=== PATIENT | male | born 1960 | race Caucasian/White ===

== ENCOUNTER 2016-12-04 10:29 | Emergency (ER) | payer MEDICARE, OTHER ==
[2016-12-04] MEDS ORDERED: SODIUM CHLORIDE 0.9% 1,000 ML IV STA (10:55)
[2016-12-04] MEDS ORDERED: RX INFO: IV CONTRAST WAS GIVEN 1 EACH MISC MISCELLANE PRN (10:55)
[2016-12-04] MEDS ORDERED: DIAZEPAM 5 MG/ML 2 ML SYRINGE IVP STA (10:56)
--- NOTE | 2016-12-04 11:20 | ED ---
Abdominal Pain HPI - General Chief Complaint: Abdominal Pain Stated Complaint: abd pain Time Seen by Provider: 12/04/16 10:45 Source: patient, RN notes reviewed Mode of arrival: wheelchair Limitations: no limitations - History of Present Illness Initial Comments: 48-year-old male presents emergency Department chief complaint abdominal pain. Patient states he's having a tightening sensation of all his muscles in his abdomen. Patient states he woke up with this. Patient states she's had some nausea and vomiting. Patient states his concern as he has a right inguinal hernia. Patient states the pain is now localized to that region. Patient denies any dysuria hematuria. Patient denies fever, chills. Denies any sick contacts. Patient states she currently is on Harvoni treatment for hep C. Patient states he sees Dr. Nicole. Patient denies any alcohol use. Denies any illicit drug use. Patient denies any other complaints. - Related Data Home Medications Medication Instructions Recorded Confirmed Ledipasvir/Sofosbuvir [Harvoni 1 tab PO DAILY 12/04/16 12/04/16 90-400 mg Tablet] Previous Rx's Medication Instructions Recorded Diazepam [Valium] 5 mg PO BID PRN #7 tab 12/04/16 Allergies Allergy/AdvReac Type Severity Reaction Status Date / Time No Known Allergies Allergy Verified 12/04/16 12:44 Review of Systems ROS Statement: Those systems with pertinent positive or pertinent negative responses have been documented in the HPI. ROS Other: All systems not noted in ROS Statement are negative. Past Medical History Additional Past Medical History / Comment(s): hepatits C, chronic pain and nerve problems in legs History of Any Multi-Drug Resistant Organisms: None Reported Past Psychological History: No Psychological Hx Reported Smoking Status: Current every day smoker Past Alcohol Use History: None Reported Past Drug Use History: None Reported General Exam Limitations: no limitations General appearance: alert, in no apparent distress Head exam: Present: atraumatic, normocephalic, normal inspection Respiratory exam: Present: normal lung sounds bilaterally. Absent: respiratory distress, wheezes, rales, rhonchi, stridor Cardiovascular Exam: Present: regular rate, normal rhythm, normal heart sounds. Absent: systolic murmur, diastolic murmur, rubs, gallop, clicks GI/Abdominal exam: Present: soft, tenderness (Bddi-sb-gyevodwb diffuse, moderate right lower quadrant tenderness), normal bowel sounds. Absent: distended, guarding, rebound, rigid Back exam: Absent: CVA tenderness (R), CVA tenderness (L) Skin exam: Present: warm, dry, intact, normal color. Absent: rash Course Vital Signs 12/04/16 10:40 Temperature 97.8 F Pulse Rate 68 Respiratory 20 Rate Blood Pressure 129/73 O2 Sat by Pulse 99 Oximetry Medical Decision Making - Medical Decision Making 56-year-old male present emergency Department chief complaint abdominal spasms. There is no acute intra-abdominal processes at this time. Patient will hernia is noted though it is not incarcerated strangulated. Patient states she is feeling much improved at this time. Patient is afebrile and has no acute infectious process at this time. Patient will be discharged. Medication reaction is a possibility at this time secondary to recent started Harvoni - Lab Data Result diagrams: 12/04/16 11:30 12/04/16 11:30 Lab Results 12/04/16 12/04/16 12/04/16 Range/Units 11:30 11:30 11:30 WBC 5.8 (3.8-10.6) k/uL RBC 6.38 H (4.30-5.90) m/uL Hgb 19.6 H (13.0-17.5) gm/dL Hct 58.7 H (39.0-53.0) % MCV 92.0 (80.0-100.0) fL MCH 30.8 (25.0-35.0) pg MCHC 33.5 (31.0-37.0) g/dL RDW 12.9 (11.5-15.5) % Plt Count 213 (150-450) k/uL Neutrophils % 66 % Lymphocytes % 20 % Monocytes % 8 % Eosinophils % 2 % Basophils % 1 % Neutrophils # 3.9 (1.3-7.7) k/uL Lymphocytes # 1.2 (1.0-4.8) k/uL Monocytes # 0.5 (0-1.0) k/uL Eosinophils # 0.1 (0-0.7) k/uL Basophils # 0.0 (0-0.2) k/uL Sodium 141 (137-145) mmol/L Potassium 4.6 (3.5-5.1) mmol/L Chloride 104 (98-107) mmol/L Carbon Dioxide 23 (22-30) mmol/L Anion Gap 14 mmol/L BUN 12 (9-20) mg/dL Creatinine 0.60 L (0.66-1.25) mg/dL Est GFR (MDRD) Af Amer >60 (>60 ml/min/1.73 sqM) Est GFR (MDRD) Non-Af >60 (>60 ml/min/1.73 sqM) Glucose 94 (74-99) mg/dL Plasma Lactic Acid Catr[place]ito (0.7-2.0) mmol/L Calcium 9.9 (8.4-10.2) mg/dL Total Bilirubin 1.0 (0.2-1.3) mg/dL AST 31 (17-59) U/L ALT 29 (21-72) U/L Alkaline Phosphatase 71 (38-126) U/L Total Protein 8.8 H (6.3-8.2) g/dL Albumin 4.6 (3.5-5.0) g/dL Amylase 47 (30-110) U/L Lipase 117 (23-300) U/L Urine Color Yellow Urine Appearance Clear (Clear) Urine pH 6.5 (5.0-8.0) Ur Specific [place] 1.016 (1.001-1.035) Urine Protein Trace H (Negative) Urine Glucose (UA) Negative (Negative) Urine Ketones Negative (Negative) Urine Blood Negative (Negative) Urine Nitrate Negative (Negative) Urine Bilirubin Negative (Negative) Urine Urobilinogen 2.0 (<2.0) mg/dL Ur Leukocyte Esterase Negative (Negative) 12/04/16 Range/Units 11:30 WBC (3.8-10.6) k/uL RBC (4.30-5.90) m/uL Hgb (13.0-17.5) gm/dL Hct (39.0-53.0) % MCV (80.0-100.0) fL MCH (25.0-35.0) pg MCHC (31.0-37.0) g/dL RDW (11.5-15.5) % Plt Count (150-450) k/uL Neutrophils % % Lymphocytes % % Monocytes % % Eosinophils % % Basophils % % Neutrophils # (1.3-7.7) k/uL Lymphocytes # (1.0-4.8) k/uL Monocytes # (0-1.0) k/uL Eosinophils # (0-0.7) k/uL Basophils # (0-0.2) k/uL Sodium (137-145) mmol/L Potassium (3.5-5.1) mmol/L Chloride (98-107) mmol/L Carbon Dioxide (22-30) mmol/L Anion Gap mmol/L BUN (9-20) mg/dL Creatinine (0.66-1.25) mg/dL Est GFR (MDRD) Af Amer (>60 ml/min/1.73 sqM) Est GFR (MDRD) Non-Af (>60 ml/min/1.73 sqM) Glucose (74-99) mg/dL Plasma Lactic Acid Catr[place]ito 2.2 H* (0.7-2.0) mmol/L Calcium (8.4-10.2) mg/dL Total Bilirubin (0.2-1.3) mg/dL AST (17-59) U/L ALT (21-72) U/L Alkaline Phosphatase (38-126) U/L Total Protein (6.3-8.2) g/dL Albumin (3.5-5.0) g/dL Amylase (30-110) U/L Lipase (23-300) U/L Urine Color Urine Appearance (Clear) Urine pH (5.0-8.0) Ur Specific [place] (1.001-1.035) Urine Protein (Negative) Urine Glucose (UA) (Negative) Urine Ketones (Negative) Urine Blood (Negative) Urine Nitrate (Negative) Urine Bilirubin (Negative) Urine Urobilinogen (<2.0) mg/dL Ur Leukocyte Esterase (Negative) Disposition Clinical Impression: Abdominal pain Disposition: HOME SELF-CARE Condition: Stable Instructions: Abdominal Pain (ED) Additional Instructions: Please return to the Emergency Department if symptoms worsen or any other concerns. Prescriptions: Diazepam [Valium] 5 mg PO BID PRN #7 tab PRN Reason: Spasms Time of Disposition: 12:59
[2016-12-04 11:42] LABS: Basophils % (A) 1 %; CH 31.6; CHCM 34.5; Eosinophils # (A) 0.1 k/uL (0-0.7); Eosinophils % (A) 2 %; HCT 58.7 % (39.0-53.0); HDW 2.62; HGB 19.6 gm/dL (13.0-17.5); Luc # (Auto) 0.17; Luc % (Auto) 3; Lymphocytes # (A) 1.2 k/uL (1.0-4.8); Lymphocytes % (A) 20 %; MCH 30.8 pg (25.0-35.0); MCHC 33.5 g/dL (31.0-37.0); Mean Platelet Volume 6.8; Monocytes # (A) 0.5 k/uL (0-1.0); Monocytes % (A) 8 %; Neutrophils # (A) 3.9 k/uL (1.3-7.7); Neutrophils % (A) 66 %; RBC 6.38 m/uL (4.30-5.90); RDW 12.9 % (11.5-15.5); WBC 5.8 k/uL (3.8-10.6); WBC (Perox) 6.34
[2016-12-04 11:45] LABS: Appearance,Urine Clear (Clear); Bilirubin,Urine Negative (Negative); Glucose,Urine (UA) Negative (Negative); Ketones,Urine Negative (Negative); Leukocyte Esterase,Urine Negative (Negative); Nitrite,Urine Negative (Negative); PH, Urine 6.5 (5.0-8.0); Protein,Urine Trace (Negative); Specific Gravity,Urine 1.016 (1.001-1.035); UA Billing (MACRO vs. MICRO) CHEM
[2016-12-04 11:58] LABS: ALT 29 U/L (21-72); AST 31 U/L (17-59); Alkaline Phosphatase 71 U/L (38-126); Amylase 47 U/L (30-110); Anion Gap 14 mmol/L; Blood Urea Nitrogen 12 mg/dL (9-20); Calcium 9.9 mg/dL (8.4-10.2); Carbon Dioxide 23 mmol/L (22-30); Chloride 104 mmol/L (98-107); Glucose 94 mg/dL (74-99); Non-African American GFR(MDRD) >60 (>60 ml/min/1.73 sqM); Sodium 141 mmol/L (137-145); Total Protein 8.8 g/dL (6.3-8.2)
[2016-12-04 12:02] LABS: Potassium 4.6 mmol/L (3.5-5.1)
--- NOTE | 2016-12-04 12:36 | CT ---
EXAMINATION TYPE: CT abdomen pelvis w con DATE OF EXAM: 12/04/2016 12:12 PM COMPARISON: NONE HISTORY: 56-year-old male with abdominal pain, cramping, pelvic pain TECHNIQUE: Contiguous axial scanning of the abdomen and pelvis following administration of 100 ml Omn ipaque 300 IV contrast. Delayed images through the kidneys and coronal/sagittal reconstructions perf ormed. CT DLP: 518.5 mGycm Automated exposure control for dose reduction was used. FINDINGS: The heart is normal size without pericardial effusion. Prominent dependent atelectasis steven g the lower lungs. There is respiratory motion limiting the overall evaluation of the upper to mid ab domen. No focal liver lesion seen. Portal venous system appears patent. No biliary ductal dilatation. Gallbladder, adrenal glands, kidneys, spleen, and pancreas appear within normal limits. Scattered prominent retroperitoneal lymph nodes measuring up to 6 mm. Moderate apical scarring calcifications within the abdominal aorta and iliac arteries. There is a nodular area of calcification measuring 1.7 cm above the pancreatic tail that could repres ent inspissated contrast within a small bowel diverticulum or a chronically calcified lymph node. No dilated small bowel, free fluid, or free air. No pericolonic inflammatory change. Bladder is urine distended. Central prostatic calcifications with mild prominence to the prostate gla nd at 4.2 cm. There is an indirect right inguinal hernia containing small bowel loop. The small bowel loops extends beyond the superficial inguinal ring and possibly into the upper scrotum. There is no proximal bowel dilatation noted. Bones: Degenerative changes at the hips and throughout the spine. No osseous destructive process. Gra de 1 retrolistheses at L1-L2 and L2-L3 on degenerative basis. IMPRESSION: 1. SMALL BOWEL CONTAINING RIGHT INDIRECT INGUINAL HERNIA. THE SMALL BOWEL LOOP EXTENDS BEYOND THE SUP ERFICIAL INGUINAL RING LIKELY INTO THE UPPER SCROTUM. NO OBSTRUCTIVE OR INFLAMMATORY CHANGES SEEN. 2. SOME SCATTERED PROMINENT RETROPERITONEAL LYMPH NODES MEASURING UP TO 6 MM ARE PROBABLY REACTIVE/PO ST INFLAMMATORY. RECOMMEND 3 MONTH FOLLOW-UP EXAM TO ENSURE STABILITY/RESOLUTION.
[2016-12-04 13:10] VITALS: BP 142/87; PULSE 60; RESP 16; TEMP 97.6
== END 2016-12-04 13:15 | disposition home or self-care (01) ==
LOC: EC 10:29
DX: R10.31 Right lower quadrant pain (principal); R25.2 Cramp and spasm; K40.90 Unilateral inguinal hernia, without obstruction or gangrene, not specified as recurrent; B19.20 Unspecified viral hepatitis C without hepatic coma; F17.200 Nicotine dependence, unspecified, uncomplicated; Z79.899 Other long term (current) drug therapy
CPT/HCPCS: 36415; 80053; 82150; 83605; 83690; 85025; 81003; 74177; 99284; 96374; 96361; J3360; Q9967

== ENCOUNTER → 2016-12-15 | Outpatient (CLI) | payer MEDICARE, OTHER ==
[2016-12-17 15:03] LABS: Hepatits C Virus RNA, Quant <12 IU/mL (<12); LOG HCV IU/mL <1.08 (<1.08)
== END | disposition home or self-care (01) ==
LOC: LABWHC1 14:42
DX: B18.2 Chronic viral hepatitis C (principal)
CPT/HCPCS: 36415; 87522

== ENCOUNTER 2017-01-11 08:54 | Day surgery (SDC) | payer MEDICARE, OTHER ==
[2017-01-06 14:41] VITALS: BMI 25.8
[~2017-01-11 08:54] MED LIST: DEXAMETHASONE SOD PHOSPHATE 10 MG/ML 1 ML VIAL IV ONE; HEPARIN SODIUM,PORCINE 5,000 UNIT/ML 1 ML VIAL SQ ONE; LIDOCAINE 1% 20 ML VIAL (10MG/ML) FOR IV START INTRADERMA PRN; ONDANSETRON 4 MG/2 ML VIAL IVP ONE; SCOPOLAMINE 1.5MG/72HR PATCH TRANSDERM ONE; ceFAZolin 2 GM in SODIUM CHLORIDE 0.9% 100 ML IVPB ONE
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
[2017-01-11] MEDS: LACTATED RINGERS 1,000 ML IV SCH (09:23)
[2017-01-11] MEDS ORDERED: LIDOCAINE 1% 20 ML VIAL (10MG/ML) FOR IV START INTRADERMA ONE ×2 (09:23→09:24)
[2017-01-11] MEDS ORDERED: HYDROmorphone (PF) 1 MG/ML ONE (09:36)
[2017-01-11] MEDS ORDERED: SUCCINYLCHOLINE CHLORIDE 100 MG/5 ML SYR IV ONE (09:36)
[2017-01-11] MEDS ORDERED: NEOSTIGMINE 1 MG/ML 10 ML VIAL ONE (09:36)
[2017-01-11] MEDS ORDERED: KETOROLAC 30 MG/ML 1 ML VIAL ONE (09:36)
[2017-01-11] MEDS ORDERED: fentaNYL (PF) 50 MCG/ML 2 ML AMP ONE (09:36)
[2017-01-11] MEDS ORDERED: MIDAZOLAM 2 MG/2 ML VIAL ONE (09:36)
[2017-01-11] MEDS ORDERED: GLYCOPYRROLATE 0.2 MG/ML 2 ML VIAL ONE (09:36)
[2017-01-11] MEDS ORDERED: ROCURONIUM BROMIDE 10 MG/ML 10 ML VIAL IV ONE (09:36)
[2017-01-11] MEDS ORDERED: PROPOFOL 10 MG/ML 20 ML VIAL IV ONE (09:36)
[2017-01-11] MEDS ORDERED: LIDOCAINE 1% INJ 10MG/ML (20 ML MDV) ONE (09:36)
[2017-01-11] MEDS ORDERED: BUPIVACAIN-EPI 0.25%-1:200,000 30 ML VIAL SQ ONE ×2 (09:54→09:55)
--- NOTE | 2017-01-11 10:37 | P.OP ---
Date of Procedure: 01/11/17 Preoperative Diagnosis: Incarcerated right inguinal hernia Postoperative Diagnosis: Incarcerated right inguinal hernia Procedure(s) Performed: Laparoscopic robotic-assisted repair of right inguinal hernia Anesthesia: MARLON Surgeon: Rupesh Hinojosa Estimated Blood Loss (ml): 5 Pathology: none sent Condition: stable Disposition: PACU Description of Procedure: The patient was placed on the operating table in the supine position. The patient received general anesthesia. The patient's abdomen was prepped and draped in usual sterile fashion. The skin was anesthetized 1% local Xylocaine at the incision sites. Using an 11 blade a skin incision was made at the umbilicus. The fascia was grasped with a Orange and then the peritoneal cavity was entered with the Veress needle. Position of the Veress needle was confirmed with a positive drop test. After adequate insufflation a 5 mm trocar was placed into the peritoneal cavity. The Laparoscope was placed the peritoneal cavity. And a robotic 8 mm trocar was placed in the right lateral position and then another 8 mm robotic trochars placed in the left lateral position. The original 5 mm trocar was exchanged for a 12 mm trocar. The patient was placed in reverse Trendelenburg and then the patient was docked to the robot. Next the peritoneum over top of the hernia was incised and then using blunt and sharp dissection and electrocautery the hernia sac was dissected free from the floor of the inguinal canal. The hernia sac was completely reduced into the peritoneal cavity. And then using the Pro typecasting machine operator mesh the hernia was repaired. The peritoneum was then sutured with 20V lock suture. The patient was then undocked the robot. The needle was withdrawn from the peritoneal cavity. The umbilical trocar site was closed with 0 Ethibond suture. The skin was closed interrupted 3-0 Monocryl suture. Dermabond dressing was applied. Patient was sent to recovery in stable condition.
[2017-01-11 11:01] VITALS: TEMP 97.8
[2017-01-11] MEDS: HYDROmorphone 1 MG/ML 1 ML SYRINGE IVP PRN ×2 (11:15→11:20)
[2017-01-11 11:30] VITALS: RESP 16
[2017-01-11] MEDS ORDERED: HYDROcodone/APAP 7.5-325MG 1 EACH TAB PO ONE (11:40)
[2017-01-11 12:51] VITALS: BP 128/76; PULSE 59
== END 2017-01-11 13:13 | disposition home or self-care (01) ==
LOC: OR 08:54
PROVIDERS: ATTEND Surgery
DX: K40.30 Unilateral inguinal hernia, with obstruction, without gangrene, not specified as recurrent (principal); B19.20 Unspecified viral hepatitis C without hepatic coma; Z79.899 Other long term (current) drug therapy
CPT/HCPCS: 49650; C1781; J2250; J1644; J1100; J2710; J0690; J2405; J2001; J3010; J1885; J1170; J0330; J2704

== ENCOUNTER 2017-01-12 22:55 | Emergency (ER) | payer MEDICARE, OTHER ==
--- NOTE | 2017-01-13 00:50 | US ---
EXAM: US Scrotum. CLINICAL HISTORY: Reason: Patient had right inguinal hernia repair yesterday TECHNIQUE: Real-time ultrasound of the scrotum with color Doppler and image documentation. COMPARISON: None FINDINGS: Right testicle: Measures 5.5 x 3.3 x 4.3 cm (volume 40.6 cc). Normal color Doppler flow to the right testicle. Right epididymis: Normal. Left testicle: Measures 5.5 x 3.0 x 3.4 cm (volume 29.3 cc). Normal color Doppler flow to the left testicle. Left epididymis: Normal. Scrotum: Heterogeneous avascular structure lateral to the right testicle, measuring approximately 5.1 x 2.6 x 3.7 cm. Varicoceles noted bilaterally. Small right sided hydrocele. IMPRESSION: 1. Complex heterogeneous, avascular structure in the right scrotum lateral to the right testicle measures up to 5.1 cm and may represent postsurgical change. Residual right inguinal hernia cannot be entirely excluded. Recommend correlation with physical exam. Attention on follow- up exams. Small right-sided hydrocele. 2. Normal appearance of the testes and epididymides. 3. Bilateral varicoceles.
[2017-01-13 01:17] VITALS: BP 135/89; PULSE 60; RESP 20; TEMP 97.2
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
== END 2017-01-13 00:45 | disposition home or self-care (01) ==
LOC: EC 22:55
DX: T81.89XA Other complications of procedures, not elsewhere classified, initial encounter (principal); N50.89 Other specified disorders of the male genital organs; N43.3 Hydrocele, unspecified; I86.1 Scrotal varices; F17.200 Nicotine dependence, unspecified, uncomplicated; Z79.899 Other long term (current) drug therapy; Z86.19 Personal history of other infectious and parasitic diseases; Y83.8 Other surgical procedures as the cause of abnormal reaction of the patient, or of later complication, without mention of misadventure at the time of the procedure
CPT/HCPCS: 76870; 93975; 99284

== ENCOUNTER 2017-02-01 15:05 | Emergency (ER) | payer MEDICARE, OTHER ==
[2017-02-01 15:14] VITALS: RESP 18
[2017-02-01] MEDS ORDERED: RX INFO: IV CONTRAST WAS GIVEN 1 EACH MISC MISCELLANE PRN (15:25)
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
[2017-02-01] MEDS ORDERED: MORPHINE SULFATE 4 MG/ML SYRINGE IVP STA (15:34)
[2017-02-01] MEDS ORDERED: ONDANSETRON 4 MG/2 ML VIAL IVP STA (15:34)
[2017-02-01 15:42] LABS: Basophils % (A) 0 %; CH 31.7; CHCM 35.6; Eosinophils # (A) 0.2 k/uL (0-0.7); Eosinophils % (A) 2 %; HCT 51.2 % (39.0-53.0); HDW 2.65; HGB 18.1 gm/dL (13.0-17.5); Luc # (Auto) 0.21; Luc % (Auto) 2; Lymphocytes # (A) 3.1 k/uL (1.0-4.8); Lymphocytes % (A) 32 %; MCH 31.7 pg (25.0-35.0); MCHC 35.4 g/dL (31.0-37.0); MCV 89.5 fL (80.0-100.0); Mean Platelet Volume 6.6; Monocytes # (A) 0.5 k/uL (0-1.0); Monocytes % (A) 5 %; Neutrophils # (A) 5.7 k/uL (1.3-7.7); Neutrophils % (A) 59 %; RBC 5.73 m/uL (4.30-5.90); RDW 12.9 % (11.5-15.5); WBC 9.7 k/uL (3.8-10.6); WBC (Perox) 10.02
[2017-02-01 16:01] LABS: Appearance,Urine Clear (Clear); Bilirubin,Urine Negative (Negative); Glucose,Urine (UA) Negative (Negative); Ketones,Urine Negative (Negative); Leukocyte Esterase,Urine Negative (Negative); Nitrite,Urine Negative (Negative); PH, Urine 6.5 (5.0-8.0); Protein,Urine Negative (Negative); Specific Gravity,Urine 1.009 (1.001-1.035); UA Billing (MACRO vs. MICRO) CHEM; Urobilinogen,Urine <2.0 mg/dL (<2.0)
[2017-02-01 16:18] LABS: ALT 22 U/L (21-72); AST 24 U/L (17-59); Alkaline Phosphatase 70 U/L (38-126); Amylase 57 U/L (30-110); Anion Gap 11 mmol/L; Blood Urea Nitrogen 9 mg/dL (9-20); Calcium 9.9 mg/dL (8.4-10.2); Carbon Dioxide 24 mmol/L (22-30); Chloride 105 mmol/L (98-107); Glucose 96 mg/dL (74-99); Non-African American GFR(MDRD) >60 (>60 ml/min/1.73 sqM); Potassium 4.2 mmol/L (3.5-5.1); Sodium 140 mmol/L (137-145); Total Bilirubin 0.9 mg/dL (0.2-1.3); Total Protein 8.3 g/dL (6.3-8.2)
--- NOTE | 2017-02-01 16:31 | CT ---
EXAMINATION TYPE: CT abdomen pelvis w con DATE OF EXAM: 02/01/2017 4:19 PM COMPARISON: CT abdomen and pelvis December 04, 2016. HISTORY: Patient complains of RLQ pain post right side inguinal hernia repair. CT DLP: 1121 mGycm, Automated Exposure Control for Dose Reduction was Utilized. CONTRAST: CT scan of the abdomen and pelvis is performed without oral but with IV Contrast, patient injected wi th 100 mL of Omnipaque 300. FINDINGS: LUNG BASES: There is peripheral reticulation suspicious for fibrosis, less likely edema posteriorly i n the bilateral lower lungs with some cystic change or honeycombing felt present. This is at level of consolidation/atelectasis on prior exam bilaterally. LIVER/GB: There may be small polyps in the gallbladder right lateral margin. PANCREAS: No significant abnormality is seen. SPLEEN: No significant abnormality is seen. ADRENALS: No significant abnormality is seen. KIDNEYS: Bladder is satisfactorily distended, wall thickness is concentrically somewhat prominent or mildly thickened at 3 to 4 mm. A cystitis should be excluded clinically. BOWEL: No significant abnormality is seen. PROSTATE/SEMINAL VESICLES: Central zone calcifications are seen in normal size prostate gland. LYMPH NODES: No greater than 1cm abdominal or pelvic lymph nodes are appreciated. OSSEOUS STRUCTURES: There is moderate to severe joint space loss with spurring and subchondral cystic change in both hips. Multilevel disc desiccation with moderate spurring is identified identified thr oughout the thoracolumbar spine. OTHER: In the right groin where there was previously visualized herniated bowel loop, there is now fl uid density structure contiguous with bowel superiorly with inseparable fat plane on coronal and sagi ttal reconstructed images. Suspect persistent bowel containing inguinal hernia. Nonspecific fluid col lection related to recent surgery such as seroma at this level is less likely but not excluded withou t enteric contrast. There is moderate calcified atherosclerotic change of distal abdominal aorta extending into pelvic br anch vessels. IMPRESSION: Persistent abnormality right groin as detailed above appears to be contiguous with bowel loops and felt to reflect recurrent or persistent bowel containing inguinal hernia.
[2017-02-01 16:45] VITALS: BP 128/79; PULSE 68
[2017-02-01 17:19] VITALS: TEMP 97
== END 2017-02-01 17:18 | disposition home or self-care (01) ==
LOC: EC 15:05
DX: K40.90 Unilateral inguinal hernia, without obstruction or gangrene, not specified as recurrent (principal); F17.200 Nicotine dependence, unspecified, uncomplicated; Z98.890 Other specified postprocedural states
CPT/HCPCS: 36415; 80053; 82150; 83690; 85025; 81003; 74177; 99284; 96374; 96375; J2270; J2405; Q9967

== ENCOUNTER 2017-02-11 10:23 | Day surgery (SDC) | payer MEDICARE, OTHER ==
[2017-02-10 09:17] VITALS: BMI 25.8
[~2017-02-11 10:23] MED LIST changes: +LACTATED RINGERS 1,000 ML IV SCH
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
[2017-02-11] MEDS ORDERED: GLYCOPYRROLATE 0.2 MG/ML 2 ML VIAL ONE (12:15)
[2017-02-11] MEDS ORDERED: HYDROmorphone (PF) 1 MG/ML ONE (12:15)
[2017-02-11] MEDS ORDERED: NEOSTIGMINE 1 MG/ML 10 ML VIAL ONE (12:15)
[2017-02-11] MEDS ORDERED: MIDAZOLAM 2 MG/2 ML VIAL ONE (12:15)
[2017-02-11] MEDS ORDERED: KETOROLAC 30 MG/ML 1 ML VIAL ONE (12:15)
[2017-02-11] MEDS ORDERED: LIDOCAINE 1% INJ 10MG/ML (20 ML MDV) ONE (12:15)
[2017-02-11] MEDS ORDERED: fentaNYL (PF) 50 MCG/ML 2 ML AMP ONE (12:15)
[2017-02-11] MEDS ORDERED: PROPOFOL 10 MG/ML 20 ML VIAL IV ONE (12:15)
[2017-02-11] MEDS ORDERED: SUCCINYLCHOLINE CHLORIDE 100 MG/5 ML SYR IV ONE (12:15)
[2017-02-11] MEDS ORDERED: ROCURONIUM BROMIDE 10 MG/ML 10 ML VIAL IV ONE (12:15)
[2017-02-11] MEDS ORDERED: ceFAZolin 1,000 MG VIAL ONE (12:15)
[2017-02-11] MEDS ORDERED: SODIUM CHLORIDE 0.9% 100 ML BAG ONE (12:15)
[2017-02-11] MEDS ORDERED: BUPIVACAIN-EPI 0.5%-1:200,000 30 ML VIAL SQ ONE (12:35)
[2017-02-11] MEDS ORDERED: SODIUM CHLORIDE 0.9% 50 ML with ceFAZolin 1,000 MG IV ONE ×2 (12:55)
--- NOTE | 2017-02-11 13:09 | P.OP ---
Date of Procedure: 02/11/17 Preoperative Diagnosis: Recurrent right inguinal hernia Postoperative Diagnosis: Right spermatic cord Cord hematoma/seroma No evidence of recurrent inguinal hernia Procedure(s) Performed: Evacuation of right cord hematoma/seroma Anesthesia: MARLON Surgeon: Rupesh Hinojosa Estimated Blood Loss (ml): 5 Pathology: none sent Condition: stable Disposition: PACU Description of Procedure: Patient's placed the operative table in the supine position. He received general anesthesia. His abdomen was prepped and draped usual sterile fashion. A standard inguinal hernia incision was made over the right internal ring and then using a clutch cautery and blunt dissection the fascia external oblique was exposed. The fascia was then opened after a sammy was made with a 15 blade and then the metastases months scissors used to open the fascia. Next a Sen trochars placed a wound. The cord structures were brought up into the wound. There was no hernia defect of the inguinal floor. The cord structures were examined and there appeared to be no evidence of a hernia sac. There was a 3 x 2 cm seroma/hematoma. This was opened and drained. No hernia was found. There is no communication in the seroma sac. At this point the cord structures were placed back into the inguinal canal and then the fascia extremity was closed with 0 Vicryl suture. Lm's fascia closed with 2-0 Vicryl suture. Skin was closed interrupted 3-0 Monocryl suture. Dermabond was applied. Patient was sent to recovery in stable condition placed
[2017-02-11 13:20] VITALS: RESP 16; TEMP 96.9
[2017-02-11] MEDS: HYDROmorphone 1 MG/ML 1 ML SYRINGE IVP PRN ×3 (13:22→13:35)
[2017-02-11] MEDS ORDERED: HYDROmorphone 1 MG/ML 1 ML SYRINGE IVP ONE (13:40)
[2017-02-11] MEDS ORDERED: HYDROcodone/APAP 7.5-325MG 1 EACH TAB PO ONE (14:36)
[2017-02-11] MEDS ORDERED: LACTATED RINGERS 1,000 ML IV ONE (14:42)
[2017-02-11 15:31] VITALS: BP 130/86; PULSE 60
== END 2017-02-11 16:02 | disposition home or self-care (01) ==
LOC: OR 10:23
PROVIDERS: ATTEND Surgery
DX: B19.20 Unspecified viral hepatitis C without hepatic coma (principal); X50.9XXA Other and unspecified overexertion or strenuous movements or postures, initial encounter; F17.200 Nicotine dependence, unspecified, uncomplicated; S37.892A Contusion of other urinary and pelvic organ, initial encounter
CPT/HCPCS: 10140; J2250; J1644; J1100; J2710; J0690 ×3; J2405; J2001; J3010; J1885; J1170; J0330; J2704